=== PATIENT | female | born 2000 | race African-American/Black ===

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

== ENCOUNTER 2022-08-13 22:24 | Emergency (ER) | payer OTHER ==
[~2022-08-13] VITALS: Ht 160 cm; Wt 58.0 kg
[2022-08-13 22:44] VITALS: BP 111/68
[2022-08-13 23:00] VITALS: BP 107/74
[2022-08-13 23:15] VITALS: BP 115/75
[2022-08-13 23:30] VITALS: BP 109/72
[2022-08-13 23:45] VITALS: BP 116/73
[2022-08-14 00:01] VITALS: BP 119/72
[2022-08-14 00:15] VITALS: BP 112/69
[2022-08-14 00:30] VITALS: BP 98/56
[2022-08-14 00:45] VITALS: BP 110/74
[2022-08-14 01:01] VITALS: BP 129/87
== END 2022-08-14 01:02 | disposition home or self-care (01) ==
LOC: ED 22:24
DX: S05.12XA Contusion of eyeball and orbital tissues, left eye, initial encounter (principal); W21.05XA Struck by basketball, initial encounter; Y93.67 Activity, basketball